=== PATIENT | female | born 2000 | race Caucasian/White ===

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

== ENCOUNTER 2020-05-01 19:18 | Emergency (ER) | payer MEDICAID, SELFPAY ==
[2020-05-01 19:19] VITALS: BP 136/71; PULSE 106; RESP 15; TEMP 36.6; O2SAT 97; BMI 22.0
--- NOTE | 2020-05-01 19:45 | ED.VISSUMM ---
- ER Visit Summary Date of Service: 05/01/20 Chief Complaint: Back pain History of Present Illness: The patient is a 19 F patient presents for back pain. This is her lower back. Bilateral, worse on the left. Worse after lifting at work. No weakness or numbness. No change in bowel or bladder. No abdominal or GI symptoms. No urinary symptoms. No history of back surgery, immune compromise, fever, or systemic symptoms. She also reports a strange rash to her lower back. Her family was concerned. She has been using heating pad. Physical Examination: Vital signs reviewed. Afebrile. She has left lumbar paraspinal muscle tenderness. No spinal tenderness. Good strength and sensation. Overlying skin shows erythema in a pattern localized to her lower back. Test Results: None indicated Emergency Department Course and Treatment: Patient skin changes are consistent with erythema ab igne. These will resolve with discontinuation of the heating pad. She has myofascial back pain after lifting. No indication for imaging or other diagnostic testing. She was treated with naproxen and Flexeril. Outpatient follow-up. Treatment Plan: As above Disposition: Discharge Impression: Myofascial back pain, erythema ab igne This note was generated with [employer] dictation software. It may contain incorrect words, spelling, and punctuation that were not noted in review of the chart prior to signing ED Disposition - Plan for ED Patient: Referrals: Care Physician,No Primary [Primary Care Provider] -
--- NOTE | 2020-05-01 19:47 | ED.DEP ---
ED Disposition - Plan for ED Patient: Instructions: ED Back Sprain/Strain Prescriptions: cycloBENZAPRine HCl [Flexeril] 10 mg PO TID PRN #20 tab PRN Reason: Muscle Spasm Prescription Printed Naproxen [Naprosyn] 500 mg PO BID PRN #20 tab Prescription Printed Referrals: Sherrie Martinez [NON-STAFF] -
[2020-05-01] MEDS: cycloBENZAPRine HCl 10 MG Tablet PO (19:51)
[2020-05-01] MEDS: Naproxen 500 MG Tablet PO (19:51)
== END 2020-05-01 19:55 | disposition home or self-care (01) ==
LOC: ED 19:52
PROVIDERS: Emergency Provider Emergency Medicine
DX: M54.9 Dorsalgia, unspecified (principal); L59.0 Erythema ab igne [dermatitis ab igne]
CPT/HCPCS: 99283

== ENCOUNTER 2021-10-17 07:15 | Emergency (ER) | payer MEDICAID, SELFPAY ==
[2021-10-17 07:16] VITALS: BP 137/85; PULSE 112; RESP 16; TEMP 36.6; O2SAT 98; BMI 23.8
--- NOTE | 2021-10-17 07:24 | CT_ITS ---
STUDY: CT ABDOMEN AND PELVIS WITHOUT CONTRAST REASON FOR EXAM: Female, 20 years old. Vomiting, constipation, abd pain RADIATION DOSAGE (If Supplied By Facility): CTDIvol = ( 6.50 ) mGy, DLP = ( 313.40 ) mGycm TECHNIQUE: Transaxial images were obtained from the dome of the diaphragm to the symphysis pubis without oral contrast, and without intravenous contrast. Sagittal and coronal images were reconstructed. Individualized dose optimization techniques were used for this CT. COMPARISON: None. FINDINGS: The visualized lung bases are unremarkable. The visualized portions of the heart are within normal limits. Normal liver. Normal gallbladder and extrahepatic biliary system. Normal spleen. Normal pancreas. Normal bilateral adrenal glands. Normal right kidney. Normal left kidney. Normal visualized stomach. Normal small intestine. Large amount of fecal material is seen in the colon. The appendix is visualized and appears normal. Normal abdominal aorta. Normal inferior vena cava. Normal retroperitoneum. Normal urinary bladder. Normal abdominal wall. Normal osseous structures. CT/Abdomen/Pelvis without Cont IMPRESSION: Large amount of fecal material is seen in the colon. Electronically Signed: Jared Devine MD at 9:08 EDT ,
--- NOTE | 2021-10-17 07:26 | EX.ED.DYSGE1 ---
HPI History of Present Illness Chief Complaint: Constipation Informant: patient Narrative Narrative: 20-year-old female presenting with constipation. She states she has not been able to have a bowel movement for the past 3 days. She also complains of vomiting. She complains of diffuse abdominal pain. She states she has not been able to keep anything down. Denies urinary complaints. Denies possibility of . No previous abdominal surgeries. Prior similar symptoms: No Recent Illness/Hospitalization: No PFSH PFSH Home Medications ondansetron 4 mg disintegrating tablet 4 mg PO Q8H PRN PRN Nausea #10 tabs 10/17/21 [Rx Last Taken Unknown] Allergy/AdvReac Type Severity Reaction Status Date / Time No Known Allergies Allergy Verified 10/17/21 07:18 Social History Smoking Status: Never smoker ROS ROS ED Constitutional Constitutional ED: Denies fever(s) Eyes Eyes: Denies change in vision ENT ENT ED: Denies rhinorrhea or sore throat Cardiovascular Cardiovascular: Denies chest pain or palpitations Respiratory/Chest Respiratory/Chest: Denies cough or dyspnea Gastrointestinal Gastrointestinal: Reports abdominal pain, constipation, nausea and vomiting; Denies diarrhea or melena Genitourinary Genitourinary ED: Denies dysuria Musculoskeletal Musculoskeletal: Denies myalgias Integumentary Denies rash Neurologic Neurologic: Denies headache(s) Psychiatric Psychiatric: Denies suicidal thoughts EXAM Physical Exam Const Vital Signs: 10/17/21 07:16 Temperature 98 F Temperature Source Temporal Pulse Rate 112 H Respiratory Rate 16 Blood Pressure 137/85 H Blood Pressure Mean 102 Pulse Ox 98 Oxygen Delivery Method Room Air Positive well nourished and well developed General Appearance ED: well developed HEENT Reports normocephalic and head/scalp atraumatic Eyes PERRL and EOMs intact bilaterally Neck supple General: Negative for tenderness Chest Wall inspection of chest normal Resp normal respiratory effort and clear to auscultation bilaterally Cardio regular rate and regular rhythm GI non-distended GI Narrative: Mild diffuse tenderness with no guarding or rebound. Rectal exam normal, no stool impaction Palpation: soft; Negative for guarding or rebound tenderness present no CVA tenderness Extremity normal to inspection Neuro oriented x3 Sensorium / Orientation: alert Psych mental status grossly normal Skin no rashes or lesions noted MDM MDM MDM Narrative Medical decision making narrative: Patient was given IV fluids, Zofran. CBC, chemistries are unremarkable. negative. CT abdomen pelvis shows large amount of fecal material in the colon. Rectal exam shows minimal stool, no impaction. She will be given mag citrate for home. She was given prescription for Zofran. Advised to follow-up with primary care physician. Advised return to ED for worsening complaints. Lab Data Attestation: I reviewed the patient's lab results. Labs: Laboratory Results - last 24 hr 10/17/21 10/17/21 10/17/21 07:35 07:35 07:35 WBC 6.9 RBC 4.51 Hgb 12.9 Hct 36.4 L MCV 80.7 L MCH 28.6 MCHC 35.4 RDW Std Deviation 36.8 RDW Coeff of Susie 12.7 Plt Count 281 MPV 10.0 Immature Gran % (Auto) 0.100 Neut % (Auto) 64.6 Lymph % (Auto) 26.8 [place] % (Auto) 6.6 Eos % (Auto) 1.6 Baso % (Auto) 0.3 Absolute Neuts (auto) 4.4 Absolute Lymphs (auto) 1.84 Nucleated RBC % 0 Sodium 137 Potassium 3.4 L Chloride 107 Carbon Dioxide 24.0 Anion Gap 6 BUN 11 Creatinine 0.60 Estim Creat Clear Calc 138.85 Est GFR (MDRD) Af Amer 160 Est GFR (MDRD) Non-Af 133 BUN/Creatinine Ratio 18.3 Glucose 97 Calcium 8.7 Total Bilirubin 0.60 AST 17 ALT 14 Alkaline Phosphatase 48 Total Protein 7.6 Albumin 3.7 Globulin 3.9 Albumin/Globulin Ratio 0.9 Serum , Qual NEGATIVE Urine Color Urine Clarity Urine pH Ur Specific [place] Urine Protein Urine Glucose (UA) Urine Ketones Urine Occult Blood Urine Nitrite Urine Bilirubin Urine Urobilinogen Ur Leukocyte Esterase Urine RBC Urine WBC Ur Squamous Epith Cells Urine Bacteria Urine Mucus 10/17/21 09:15 WBC RBC Hgb Hct MCV MCH MCHC RDW Std Deviation RDW Coeff of Susie Plt Count MPV Immature Gran % (Auto) Neut % (Auto) Lymph % (Auto) [place] % (Auto) Eos % (Auto) Baso % (Auto) Absolute Neuts (auto) Absolute Lymphs (auto) Nucleated RBC % Sodium Potassium Chloride Carbon Dioxide Anion Gap BUN Creatinine Estim Creat Clear Calc Est GFR (MDRD) Af Amer Est GFR (MDRD) Non-Af BUN/Creatinine Ratio Glucose Calcium Total Bilirubin AST ALT Alkaline Phosphatase Total Protein Albumin Globulin Albumin/Globulin Ratio Serum , Qual Urine Color Yellow Urine Clarity Sl. Cloudy Urine pH 6.0 Ur Specific [place] 1.015 Urine Protein Negative Urine Glucose (UA) Normal Urine Ketones 50 H Urine Occult Blood Negative Urine Nitrite Negative Urine Bilirubin Negative Urine Urobilinogen Normal Ur Leukocyte Esterase Negative Urine RBC 0 SEEN Urine WBC 0 SEEN Ur Squamous Epith Cells 5-10 SEEN Urine Bacteria 0 SEEN Urine Mucus 0 SEEN Radiography Diagnostic Testing: Clinical Impression(s) from Imaging Studies Abdomen/Pelvis CT 10/17/21 07:24 IMPRESSION: Large amount of fecal material is seen in the colon. Electronically Signed: Jared Devine MD at 9:08 EDT , Discharge Plan Triage Chief Complaint: Constipation ED Provider: Eileen Damon Dx/Rx/DC Orders Clinical Impression: Constipation Instructions: ED Constipation (Adult) Prescriptions: New ondansetron 4 mg tablet,disintegrating 4 mg PO Q8H PRN PRN (Reason: Nausea) Qty: 10 0RF Primary Care Provider: Care Physician,No Primary Referrals: Jair Howard MD [NON-STAFF] - Care Physician,No Primary [Primary Care Provider] - Disposition Disposition: Home, Self Care
[2021-10-17] MEDS: Ondansetron 4 MG/2 ML Vial IV (07:45)
[2021-10-17] MEDS: 0.9% Normal Saline 1,000 ML 1000 ML IV (07:45)
[2021-10-17 07:52] LABS: Absolute Lymphocyte Count 1.84 X10^3/uL (0.83-4.51); Absolute Neutrophil Count 4.4 X10^3/uL (2.0-7.7); Basophil# 0.02 X10^3/uL; Basophil% 0.3 % (0-1); Eosinophil# 0.11 X10^3/uL; Eosinophils% 1.6 % (0-5); Hematocrit 36.4 % (37-47); Hemoglobin 12.9 g/dL (12.0-15.0); Lymphocyte # 1.84 X10^3/ul (0.83-4.51); Lymphocyte % 26.8 % (19-41); Mean Corp Hgb Conc 35.4 g/dL (32-36); Mean Corpuscular Hgb 28.6 pg (27.0-32.0); Mean Corpuscular Volume 80.7 fL (81-99); Monocyte# 0.45 X10^3/uL; Monocyte% 6.6 % (0-10); NRBC Flagged by Analyzer 0 % (0-5); Neutrophil # 4.44 X10^3/uL (2.7-7.7); Neutrophil % 64.6 % (47-70); Platelet Count 281 K/mm3 (150-450); RBC Distribution Width CV 12.7 % (11.6-14.6); RBC Distribution Width SD 36.8 fl (35.1-43.9); Red Blood Count 4.51 M/mm3 (4.2-5.4); White Blood Count 6.9 K/mm3 (4.4-11.0)
[2021-10-17 08:00] LABS: ALB/GLOB Ratio 0.9 RATIO (0.9-2.4); AST(SGOT) 17 U/L (15-37); Alanine Aminotransfer ALT/SGPT 14 U/L (13-56); Albumin, Serum 3.7 g/dL (3.2-5.0); Alkaline Phosphatase 48 U/L (45-117); Anion Gap 6 (5-15); BUN 11 mg/dL (7-18); BUN/Creat Ratio 18.3 RATIO (10-20); Calcium,Total 8.7 mg/dL (8.5-10.1); Chloride 107 mmol/L (98-107); EST Glomerular Filtration Rate 133 mL/min (>60); Est Glom Filt Rate - Afr Amer 160 mL/min (>60); Estimated Creatinine Clearance 138.85 ml/min; Globulin 3.9 g/dL (2.2-4.2); Glucose 97 mg/dL (74-106); Potassium 3.4 mmol/L (3.5-5.1); Protein, Total 7.6 g/dL (6.4-8.2); Sodium Level 137 mmol/L (136-145)
[2021-10-17 08:31] LABS: Internal QC Validated? YES +Cl - CLEAR BKGD; Pregnancy, Serum, hCG Quali. NEGATIVE Negative
[2021-10-17 09:28] LABS: Bacteria 0 SEEN /hpf (None Seen); Mucous, Urine 0 SEEN /hpf (<or=2+); Red Blood Cells-Urine 0 SEEN /hpf (0-5); White Blood Cells 0 SEEN /hpf (0-5)
[2021-10-17 09:30] LABS: Color, Urine Yellow (Yellow); Glucose, Dipstick Normal (Normal); Ketone-Dipstick 50 mg/dl (Negative); Leukocyte Esterase-Dipstick Negative /ul (Negative); Nitrite-Dipstick Negative (Negative); Occult Blood-Urine Negative /ul (Negative); Protein-Dipstick Negative (Negative); Specific Gravity, Urine 1.015 (1.002-1.030); Urine Bilirubin Dipstick Negative (Negative); Urine Clarity Sl. Cloudy (Clear); Urine Urobilinogen Normal (Normal)
[2021-10-17 09:36] LABS: Squamous Epithelial Cells - UA 5-10 SEEN /hpf (5-10)
[2021-10-17] MEDS: Magnesium Citrate 300 ML PO (09:45)
== END 2021-10-17 09:47 | disposition home or self-care (01) ==
PROVIDERS: Emergency Provider Emergency Medicine; Visit Provider Emergency Medicine
DX: K59.00 Constipation, unspecified (principal); R11.2 Nausea with vomiting, unspecified
CPT/HCPCS: 74176; 80053; 81001; 84703; 85025; 96361; 96374; 99284; J7030; A4216; J2405

== ENCOUNTER 2025-02-16 02:08 | Emergency (ER) | payer SELFPAY ==
[2025-02-16 02:09] VITALS: BP 141/82; PULSE 92; RESP 18; TEMP 36.9; O2SAT 97; BMI 30.4
--- NOTE | 2025-02-16 02:29 | EDS_ITS ---
HPI History of Present Illness Chief Complaint: Other, Pain/Inj Detail of Chief Complaint: neck pain Informant: patient Narrative Narrative: Patient is a 24-year-old female with a history of sickle cell trait presenting with acute onset of severe right neck pain. - Reports waking up at 0200 yesterday with inability to move her neck, describing it as locked up. - Prior to this, she experienced neck tingles on the right side for a few days, which she attributed to posture. - Describes current pain as radiating from the neck to the head, likening it to being hit with a baseball bat; has never experienced anything similar before. - Pain is exacerbated by movement, particularly when turning to the right. - Associated symptoms include brief explosive headaches triggered by sudden movements. - Denies fever, photophobia, or any recent heavy lifting or straining. - No issues with swallowing or breathing; denies abdominal pain, sore throat, cough, or other illness symptoms. - Reports chronic right anterior ear pain for several years, described as feeling like a pen is being stuffed into her ear when eating or chewing; suspects TMJ syndrome due to a history of teeth grinding. - Denies any other medical problems. [facility] Medical History (Updated 02/16/25 @ 04:[address] Casey Gallegos MD) Sickle cell trait Medical History no medical history Home Medications ?Medication ?Instructions ?Recorded ?Last Taken ?Type amoxicillin 875 mg-potassium 875 mg PO Q12H #20 TABLET S 02/16/25 Unknown Rx clavulanate 125 mg tablet hydrocodone-acetaminophen 5-325mg 1 tab PO Q6H PRN PRN Pain 3 days 02/16/25 Unknown Rx 5mg-325mg #10 TABLETS Allergy/AdvReac Type Severity Reaction Status Date / Time No Known Allergies Allergy Verified 02/16/25 02:13 Social History Smoking Status: Never smoker ROS ROS ED Constitutional Constitutional ED: Denies chills or fever(s) Eyes Eyes: Denies change in vision or diplopia ENT ENT ED: Reports ear pain right and neck pain; Denies disequillibrium, dizziness, hearing loss, loss taste/smell, nasal congestion, rhinorrhea, sore throat or tinnitus Cardiovascular Cardiovascular: Denies chest pain or palpitations Respiratory/Chest Respiratory/Chest: Denies cough or dyspnea Gastrointestinal Gastrointestinal: Denies abdominal pain, diarrhea, nausea or vomiting Genitourinary Genitourinary ED: Denies dysuria or hematuria Musculoskeletal Musculoskeletal: Reports neck pain; Denies back pain Integumentary Denies abscess or rash Neurologic Neurologic: Denies headache(s), paresthesias or weakness Psychiatric Psychiatric: Denies anxiety or suicidal thoughts EXAM Physical Exam Const Vital Signs: 02/16/25 02:09 02/16/25 02:13 Temperature 98.5 F Temperature Source Oral Pulse Rate 92 Respiratory Rate 18 Respiratory Pattern Normal Blood Pressure 141/82 H Blood Pressure Mean 101 Pulse Ox 97 Positive well nourished and well developed General Appearance ED: well developed and NAD HEENT Reports moist mucous membranes normocephalic and atraumatic Eyes PERRL and EOMs intact bilaterally Neck Neck Narrative: Very tender throughout the right lateral neck in the area of the lupe rnocleidomastoid, mastoid process, periauricular area including anteriorly where parotid lies, and the musculature of the neck just posterior to the mastoid process. All of these areas are normal in appearance and palpation. I do not feel any perirectal or cervical lymphadenopathy however the exam is limited due to the patient withdrawing and pain with light palpation everywhere. The mastoid is not swollen or erythematous. The parotid is not enlarged when compared to the other side nor is it firm or boggy. There is no discharge from Stensen's duct bilaterally. She has no trismus. No malocclusion of the teeth. She does not have TMJ clicking when she moves her jaw. There is no mandibular tenderness. There is no swelling or abnormal skin abnormalities in the right side of the neck but she is resistant to turning to the side due to pain. There is no posterior spinal tenderness or other posterior neck tenderness. Resp normal respiratory effort and clear to auscultation bilaterally Cardio regular rate, regular rhythm and no murmurs Back/Spine General Back: other FROM Extremity normal to inspection General Extremety ED: Negative for edema, pulses abnormal or tenderness General Extremity: Negative for edema or pulses abnormal Neuro oriented x3, CN's II-XII intact bilaterally and no sensory deficits noted Neuro Narrative: nml gait Sensorium / Orientation: awake and alert Motor Exam: strength 5/5 throughout Skin no rashes or lesions noted and no wounds MDM MDM MDM Narrative Medical decision making narrative: Assessment: The patient is a 24-year-old female presenting for acute right-sided neck pain radiating to the periauricular region since yesterday. Pain worsens with neck rotation and is associated with focal tenderness over the right parotid/mastoid area; no fever, no systemic infectious symptoms, normal neurologic examination, and no signs of meningitis. Differential included muscular strain, TMJ syndrome, cervical lymphadenitis, mastoiditis, parotid infection/abscess, and neoplasm. CT mastoid/petrous bone and CT neck with IV contrast demonstrate deep cervical lymphadenopathy and a 1?2 cm enhancing right parotid gland mass with a hypodense center. Labs show no leukocytosis. Radiology favors a soft-tissue mass; however, given reactive lymphadenopathy and severe focal pain, a localized parotid infection or early abscess remains possible. Plan: - Symptomatic pain treatment administered in ED - Prescribed Augmentin for possible parotid infection/early abscess - Prescribed oral analgesics for pain control - Discharge home with instructions to arrange otolaryngology follow-up after the weekend Diagnostics: - CT mastoid and petrous bone with IV contrast: deep cervical lymphadenopathy; 1?2 cm enhancing right parotid mass with hypodense center; no mastoid bone infection. Independently interpreted by Casey warner. - CT neck with IV contrast: findings concordant with above; no additional pathology. Independently interpreted by Casey warner. - Labs: CBC without leukocytosis Lab Data Attestation: I reviewed the patient's lab results. Labs: Laboratory Results - last 24 hr 02/16/25 02:37 WBC 9.2 RBC 4.51 Hgb 12.4 Hct 35.9 L MCV 79.6 L MCH 27.5 MCHC 34.5 RDW Std Deviation 37.7 RDW Coeff of Susie 13.2 Plt Count 346 MPV 9.6 Immature Gran % (Auto) 0.200 Neut % (Auto) 69.7 Lymph % (Auto) 22.7 [place] % (Auto) 6.0 Eos % (Auto) 1.1 Baso % (Auto) 0.3 Absolute Neuts (auto) 6.4 Absolute Lymphs (auto) 2.08 Nucleated RBC % 0 Sodium 139 Potassium 3.9 Chloride 105 Carbon Dioxide 24.4 Anion Gap 10 BUN 13 Creatinine 0.66 L Estim Creat Clear Calc 143.79 Est GFR (MDRD) Non-Af 125 BUN/Creatinine Ratio 19.7 Glucose 114 H Calcium 9.0 Radiography Diagnostic Testing: Clinical Impression(s) from Imaging Studies CT Orbit Sella Inner 02/16/25 02:55 IMPRESSION: Unremarkable study of the mastoid and petrous bones. Reading Location: [place] [id number] 02/16/25 02:55 IMPRESSION: Right parotid gland superficial lobe enhancing mass. Advise histopathological correlation. Right thyroid lobe 4 mm hypodense nodule. Advise sonography correlation. Relatively prominent palatine tonsils and oropharyngeal tissue, possibly inflammatory with no obvious marginally enhancing abscesses formation. Advise clinical correlation. Reading Location: [place] [address] Discharge Plan Triage Chief Complaint: Other, Pain/Inj ED Provider: Casey Gallegos Dx/Rx/DC Orders Clinical Impression: Mass of right parotid gland, Neck pain on right side, Lymphadenopathy of right cervical region Instructions: ED Neck Pain, ED Salivary Gland Swelling Cause Prescriptions: New hydrocodone-acetaminophen 5-325 mg tablet 1 tab PO Q6H PRN PRN (Reason: Pain) 3 Days Qty: 10 0RF amoxicillin-pot clavulanate 875-125 mg tablet 875 mg PO Q12H Qty: 20 0RF Primary Care Provider: Care Physician,No Primary Referrals: Collin Haney MD [Med Staff - Active Staff, Ear Nose Throat (ENT)] - As soon as possible Activity Restrictions/Additional Instructions: - Start the prescribed Augmentin antibiotic to cover a possible infection or early abscess in your salivary gland. - Take the prescribed pain reliever as needed to manage your neck and ear discomfort. - CT scan findings: swollen lymph nodes deep in your neck and a 1?2 cm mass in your parotid (salivary) gland by the ear with a small fluid-filled center; radiology recommends correlation with a biopsy, which may be indicated if antibiotics do not resolve it. - After the weekend, call the otolaryngology (ENT) office to schedule your follow-up appointment and discuss the recommended biopsy. Print Language: Welsh Disposition Disposition: Home, Self Care
[2025-02-16 02:41] LABS: Hematocrit 35.9 % (37-47); Hemoglobin 12.4 g/dL (12.0-15.0); Immature Granulocytes Count 0.020 X10^3/uL (0.0-0.0); Mean Corp Hgb Conc 34.5 g/dL (32-36); Mean Corpuscular Volume 79.6 fL (81-99); Mean Platelet Vol. 9.6 fl (6.2-12.0); NRBC Flagged by Analyzer 0 % (0-5); Platelet Count 346 K/mm3 (150-450); RBC Distribution Width CV 13.2 % (11.6-14.6); RBC Distribution Width SD 37.7 fl (35.1-43.9); Red Blood Count 4.51 M/mm3 (4.2-5.4); White Blood Count 9.2 K/mm3 (4.4-11.0)
[2025-02-16] MEDS: Orphenadrine 60 MG/2 ML Ampul IV (02:41)
--- NOTE | 2025-02-16 02:55 | CT_ITS ---
PROCEDURE: ORB SELLA POST FOSSA EAR W/O 02/16/2025 REASON FOR EXAM: RIGHT NECK/EAR/MASTOID PAIN TECHNIQUE: Procedure Code: CTORB Modality: CT Procedure: ORB SELLA POST FOSSA EAR W/O CONTRAST: none One or more dose reduction techniques were used (e.g., Automated exposure control, adjustment of the mA and/or kV according to patient size, use of iterative reconstruction technique). RADIATION DOSE SUMMARY: CTDI Vol 22.63 mGy DLP :515.6mGycm COMPARISON: none FINDINGS: Clear pneumatized mastoid air cells and mastoid antrum on either side. The middle ear clefts show normal pneumatization with no internal densities. Normal appearance of the ossicular chain on either side. No bony erosive changes. Normal appearance of the scutum. Normal appearance of the cochlea, vestibules and semicircular canals on either side. No obvious internal auditory canals masses on non contrast bases. No obvious nasopharyngeal masses. CT/Orb Sella Post Fossa Ear w/o IMPRESSION: Unremarkable study of the mastoid and petrous bones. Reading [facility] [id number]
--- NOTE | 2025-02-16 02:55 | CT_ITS ---
PROCEDURE: SOFT TISSUE NECK WITH CONTRAST 02/16/2025 REASON FOR EXAM: R NECK PAIN TECHNIQUE: Procedure Code: CTNEW Modality: CT Procedure: SOFT TISSUE NECK WITH CONTRAST CONTRAST: isovue 370 VOLUME: 75 mL One or more dose reduction techniques were used (e.g., Automated exposure control, adjustment of the mA and/or kV according to patient size, use of iterative reconstruction technique). RADIATION DOSE SUMMARY: CTDI Vol 16.68 mGy DLP :323.70 mGycm COMPARISON: 13-Oct-2018 CR FINDINGS: Right parotid gland superficial lobe 11 x 13 mm enhancing mass showing hypodense center. Right thyroid lobe 4 mm hypodense nodule. Relatively prominent palatine tonsils and oropharyngeal tissue with no obvious marginally enhancing abscesses formation. Normal CT appearance of the larynx, namely the supra-glottic, glottic and infra, glottic spaces. The base of the tongue, the epiglottis, the vocal cords, the upper trachea, the upper esophagus are unremarkable. Normal CT appearance of the supra-and infra hyoid deep neck spaces. Normal CT appearance of the sublingual, submandibular and left parotid salivary glands. Subcentemetric group I, II and III deep cervical lymph nodes, likely reactive. Normal appearance of the carotid sheath vessels. The visualized structures of the posterior fossa show no definite abnormality. The examined paranasal sinuses are clear. Mild degenerative changes opposite C5-C6 & C6-C7 level. CT/Soft Tissue Neck WITH Contrast IMPRESSION: Right parotid gland superficial lobe enhancing mass. Advise histopathological c orrelation. Right thyroid lobe 4 mm hypodense nodule. Advise sonography correlation. Relatively prominent palatine tonsils and oropharyngeal tissue, possibly inflam matory with no obvious marginally enhancing abscesses formation. Advise clinical correlation. Reading Location[facility]
[2025-02-16 02:59] LABS: Anion Gap 10 (5-15); BUN 13 mg/dL (4-19); BUN/Creat Ratio 19.7 RATIO (10-20); Calcium,Total 9.0 mg/dL (7.6-11.0); Carbon Dioxide 24.4 mmol/L (21.0-32.0); Chloride 105 mmol/L (98-108); Estimated Creatinine Clearance 143.79 ml/min (50-250); Glucose 114 mg/dL (70-99); Potassium 3.9 mmol/L (3.3-5.1)
--- OUTSIDE RECORDS SUMMARY | 2025-02-16 03:54 | XMS RPT_ITS | CCD ---
Author Organization [facility] Care Team Providers Care Epic Willow Specialist Name Role Phone Unavailable Primary Care Provider Unavailabl e Medications Current Medications Medication Drug Class(es) Dates Sig (Normalized) Sig (Original) ondansetron 4 mg disintegrating oral tablet (1 source) Serotonin-3 Receptor Antagonist Start: 10-17-2021 take 4 mg by mouth every eight hours as needed Ondansetron Active 4 MG PO EVERY 8 HOURS NEEDED October 17, 2021 12:00am Completed/Discontinued Medications Medication Drug Class(es) Dates Sig (Normalized) Sig (Original) diphenhydrAMINE hydrochloride 25 mg oral capsule (1 source) Histamine-1 Receptor Antagonist Start: 06-05-2018 End: 06-10-2018 take 25 mg by mouth three times daily Diphenhydramine Hcl Discontinued 25 MG PO THREE TIMES A DAY 15 June 05, 2018 1:00am June 10, 2018 12:10am Problems Problem Classification Problem Date Documented Da te Episodic/Chronic Fever of unknown origin (1 source) Low grade pyrexia; Translations: [Fever, unspecified] 11-22-2023 Episodic Other eye disorders (1 source) Bilateral epiphora of eyes; Translations: [Unspecified epiphora, bilateral] 11-22-2023 Episodic Other gastrointestinal disorders (1 source) Foreign body sensation; Translations: [Other specified symptoms and signs involving the digestive system and abdomen] Episodic Other gastrointestinal disorders (1 source) Constipation; Translations: [Constipation, unspecified] Episodic Other upper respiratory disease (1 source) Nasal congestion; Translations: [Nasal congestion] 11-22-2023 Episodic Unclassified (1 source) No history of clinical finding in subject; Translations: [No significant past medical history] Results Test Name Value Interpretation Reference Range Facil ity CNOVon 11-22-2023 CNOV Office Visit ([facility]) NAYANA MORA ([id number]) 89 F Date Time Provider Department 11/22/23 7:00 PM [facility] During your visit today, we recorded the following information about you: Temperature Pulse Respiration Blood pressure 100 degrees 86/minute 18/minute 124/78 Weight Last Period 76 kg 11/22/23 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 No official court interpreter was used. HPI Nayana Mora is a 23 year old female who presents today for CC of nasal congestion, itchy watery eyes and post nasal drainage for 3 days. She also has a low grade temperature. 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 She denies any cough nausea, vomiting or diarrhea. She did not test for covid no known exposure. BP 124/78 Pulse 86 Temp 37.8 ?C (100 ?F) Resp 18 Wt 76 kg (167 lb 8.8 oz) LMP 11/22/2023 (Exact Date) SpO2 100% Social History Tobacco Use Smoking status: Never Smokeless tobacco: Never No past medical history on file. I have confirmed and edited as necessary, the [facility] Review of Systems Constitutional: Negative for chills and fever. HENT: Positive for congestion and sinus pain. Negative for ear pain and sore throat. Eyes: Itchy eyes Respiratory: Negative for cough, sputum production, shortness of breath and wheezing. Cardiovascular: Negative for chest pain. Musculoskeletal: Negative for myalgias. Neurological: Negative for headaches. Objective Physical Exam Vitals and nursing note reviewed. HENT: Head: Normocephalic and atraumatic. Right Ear: Tympanic membrane, ear canal and external ear normal. Left Ear: Tympanic membrane, ear canal and external ear normal. Nose: Mucosal edema, congestion and rhinorrhea (clear) present. Right Sinus: No maxillary sinus tenderness or frontal sinus tenderness. Left Sinus: No maxillary sinus tenderness or frontal sinus tenderness. Mouth/Throat: Pharynx: Uvula midline. No oropharyngeal exudate or posterior oropharyngeal erythema. Cardiovascular: Rate and Rhythm: Normal rate and regular rhythm. Heart sounds: Normal heart sounds. Pulmonary: Effort: Pulmonary effort is normal. Breath sounds: Normal breath sounds. Lymphadenopathy: Head: Right side of head: No submental, submandibular or tonsillar adenopathy. Left side of head: No submental, submandibular or tonsillar adenopathy. Cervical: No cervical adenopathy. Skin: General: Skin is warm and dry. Neurological: Mental Status: She is alert. Psychiatric: Mood and Affect: Affect normal. ASSESSMENT/PLAN: 1. Nasal congestion - ICD9: 478.19, ICD10: R09.81 (primary diagnosis) Possible allergies uri Zyrtec, flonase 2. Watery eyes - ICD9: 375.20, ICD10: H04.203 Possible viral, cold, allergies Zaditor, pataday 3. Low grade fever - ICD9: 780.60, ICD10: R50.9 Tylenol/ibuprofen Possible viral illness Will test for covid at home, declined testing here Symptomatic treatment Diagnosis and treatment plan were discussed and questions were answered to the patient's satisfaction. Pt acknowledged understanding of concepts and follow up plan. Specific signs and symptoms that would indicate the need for higher level of care were discussed in detail warranting prompt ER evaluation. DEMARIO Joe Tonya, APRN.CNP 11/22/2023 7:34 PM Signed Rest, increase water intake Motrin or Tylenol as needed for fever or pain. Salt water gargles, chloraseptic spray or lozenges as needed for sore throat. Warm beverages, honey. Nasal saline spray as needed Cool mist humidifier at night A cold normally lasts 7-10 days. If your symptoms are lasting longer, develop fever, or worsening by that time instead of improving then return to clinic or follow up with PCP for re-evaluation. For allergies Flonase or Nasonex 2 sprays in each nostril once a day Zyrtec 10 mg By mouth daily at bedtime Pataday or Zaditor as needed for eye itching * Seek medical care immediately, call 911, go to ER if you have chest pain, difficulty breathing, shortness of breath, inability to swallow. Allergies As of Date: 11/22/2023 (No Known Allergies) Date Reviewed: 11/22/2023 Reviewed by: Dee Tristan LPN - Fully Assessed Reason for Visit: Sinus Problem [99] Cmt: Pressure and pain in face, headache, itchy watery eyes, scratchy throat, low grade fever x 2 days Primary Visit Diagnosis:Nasal congestion [R09.81] Other Visit Diagnoses:Watery eyes [H04.203] Low grade fever [R50.9] Problem List As Of Date: 11/22/2023 (None) Other instructions from your clinician: Rest, increase water intake Motrin or Tylenol as needed for fever or pain. Salt water gargles, chloraseptic spray or lozenges as needed for sore throat. Warm beverages, honey. Nasal saline spray as needed Cool mist hum (more content not included)... Normal [facility] Abdomen/Pelvis without Conto n 10-17-2021 Abdomen/Pelvis without Cont [facility] Imaging Services [address] [place] [address] Abdomen/Pelvis without Cont MR#: [id number] Acct: [id number] Name: NAYANA MORA Rep #: [id number] : 2000 F 20 From: Jared hollis MD PCP: Care Physician,No Primary Status: REG ER Study: Abdomen/Pelvis without Cont Date of Exam: 09/30 11/21 Exam# [id number] Ordering Dr: Eileen Damon MD STUDY: CT ABDOMEN AND PELVIS WITHOUT CONTRAST REASON FOR EXAM: Female, 20 years old. Vomiting, constipation, abd pain RADIATION DOSAGE (If Supplied By Facility): CTDIvol = ( 6.50 ) mGy, DLP = ( 313.40 ) mGycm TECHNIQUE: Transaxial images were obtained from the dome of the diaphragm to the symphysis pubis without oral contrast, and without intravenous contrast. Sagittal and coronal images were reconstructed. Individualized dose optimization techniques were used for this CT. COMPARISON: None. FINDINGS: The visualized lung bases are unremarkable. The visualized portions of the heart are within normal limits. Normal liver. Normal gallbladder and extrahepatic biliary system. Normal spleen. Normal pancreas. Normal bilateral adrenal glands. Normal right kidney. Normal left kidney. Normal visualized stomach. Normal small intestine. Large amount of fecal material is seen in the colon. The appendix is visualized and appears normal. Normal abdominal aorta. Normal inferior vena cava. Normal retroperitoneum. Normal urinary bladder. Normal abdominal wall. Normal osseous structures. CT/Abdomen/Pelvis without Cont IMPRESSION: Large amount of fecal material is seen in the colon. Electronically Signed: Jared Devine MD at 9:08 EDT Reading Location ID and State: [facility] / [place] , Service support , CC: Dr. Eileen Damon MD; No Primary Care Physician Industrial Education Teacher: Signed Normal [facility] Absolute lymphocyte counton 10-17-2021 Lymphocytes Auto (Unsp spec) [#/Vol] 1.84 10*3/uL 0.83-4.51 [facility] Work Phone: Basophil percentageon 2021 Basophil percentage 0 SEEN /hpf 0-5 [facility] Work Phone: Basophils/100 WBC (Bld) 0.3 % 0-1 [facility] Work Phone: Bilirubin [Mass/Vol] 0.60 mg/dL Normal 0.20-1.00 [facility] Work Phone: Comment on above: For patients on eltr ombopag therapy, use of Dimension Mitchell TBIL is not recommended. Result Comment: For patients on eltrombopag therapy, use of Dimension Mitchell TBIL is not recommended. Performed By: #### L 100.0100, L500.4050 #### [facility] [address] [place], [address] Chloride [Moles/Vol] 107 mmol/L Normal 98-107 [facility] Work Phone: Comment on above: Performed By: #### L 100.0100, L500.4050 #### [facility] [address] [place], [address] Eosinophils/100 WBC (Bld) 1.6 % 0-5 [facility] Work Phone: Glucose [Mass/Vol] 97 mg/dL Normal 74-106 [facility] Work Phone: Comment on above: Performed By: #### L 100.0100, L500.4050 #### [facility] [address] [place], [address] Neutrophils (Bld) [#/Vol] 4.4 10*3/uL 2.0-7.7 [facility] Work Phone: Neutrophils/100 WBC (Bld) 64.6 % 47-70 [facility] Work Phone: Potassium [Moles/Vol] 3.4 mmol/L Low 3.5-5.1 [facility] Work Phone: Comment on above: Performed By: #### L 100.0100, L500.4050 #### [facility] [address] [place], [address] Protein [Mass/Vol] 7.6 g/dL 6.4-8.2 [facility] Work Phone: Sodium [Moles/Vol] 137 mmol/L Normal 136-145 [facility] Work Phone: Comment on above: Performed By: #### L 100.0100, L500.4050 #### [facility] [address] [place], [address] WBC (Bld) [#/Vol] 6.9 10*3/uL 4.4-11.0 [facility] Work Phone: Beta hCG serum qualon 2021 Beta HCG ( test) Ql Negative [facility] Work Phone: Bilirubin Test strip Ql (U)o n 10-17-2021 Bilirubin Ql (U) Negative Negative [facility] Work Phone: Blood erythrocytes count (nu mber/volume)on 10-17-2021 RBC (Bld) [#/Vol] 4.51 10*6/uL 4.2-5.4 [facility] Work Phone: Blood hemoglobin measurement (mass/volume)on 10-17-2021 Hemoglobin (Bld) [Mass/Vol] 12.9 g/dL 12.0-15.0 [facility] Work Phone: Blood lymphocytes/100 leukoc yteson 10-17-2021 Lymphocytes/100 WBC (Bld) 26.8 % 19-41 [facility] Work Phone: Blood monocytes/100 leukocyt eson 10-17-2021 Monocytes/100 WBC (Bld) 6.6 % 0-10 [facility] Work Phone: Blood platelet mean volumeon 10-17-2021 Platelet mean volume (Bld) [Entitic vol] 10.0 fL 6.2-12.0 [facility] Work Phone: CBC W/Diff, Automatedon 09-30 Absolute Lymph 1.84 X10 3/uL Normal 0.83-4.51 [facility] Comment on above: Performed By: #### L 100.0100, L500.4050 #### [facility] [address] [place], [address] Absolute Neut 4.4 X10 3/uL Normal 2.0-7.7 [facility] Comment on above: Performed By: #### L 100.0100, L500.4050 #### [facility] [address] [place], [address] Basophils/100 WBC (Bld) 0.3 % Normal 0-1 [facility] Comment on above: Performed By: #### L 100.0100, L500.4050 #### [facility] [address] [place], [address] Eosinophils/100 WBC (Bld) 1.6 % Normal 0-5 [facility] Comment on above: Performed By: #### L 100.0100, L500.4050 #### [facility] [address] [place], [address] Erythrocyte distribution width (RBC) [Ratio] 12.7 % Normal 11.6-14.6 [facility] Comment on above: Performed By: #### L 100.0100, L500.4050 #### [facility] [address] [place], [address] Hematocrit (Bld) [Volume fraction] 36.4 % Low 37-47 [facility] Comment on above: Performed By: #### L 100.0100, L500.4050 #### [facility] [address] [place], [address] Hemoglobin (Bld) [Mass/Vol] 12.9 g/dL Normal 12.0-15.0 [facility] Comment on above: Performed By: #### L 100.0100, L500.4050 #### [facility] [address] [place], [address] IG% 0.100 Normal 0.0-0.9 [facility] Comment on above: Result Comment: IG% - Immature Granulocytes (promyelocytes, myelocytes and metamyelocytes) > 1% indicates that a LEFT SHIFT is Present. Performed By: #### L 100.0100, L500.4050 #### [facility] [address] [place], [address] Lymphocytes/100 WBC (Bld) 26.8 % Normal 19-41 [facility] Comment on above: Performed By: #### L 100.0100, L500.4050 #### [facility] [address] [place], [address] MCH (RBC) [Entitic mass] 28.6 pg Normal 27.0-32.0 [facility] Comment on above: Performed By: #### L 100.0100, L500.4050 #### [facility] [address] [place], [address] MCHC (RBC) [Mass/Vol] 35.4 g/dL Normal 32-36 [facility] Comment on above: Performed By: #### L 100.0100, L500.4050 #### [facility] [address] [place], [address] MCV (RBC) [Entitic vol] 80.7 fL Low 81-99 [facility] Comment on above: Performed By: #### L 100.0100, L500.4050 #### [facility] [address] [place], [address] Monocytes/100 WBC (Bld) 6.6 % Normal 0-10 [facility] Comment on above: Performed By: #### L 100.0100, L500.4050 #### [facility] [address] [place], [address] Neutrophils/100 WBC (Bld) 64.6 % Normal 47-70 [facility] Comment on above: Performed By: #### L 100.0100, L500.4050 #### [facility] [address] [place], [address] Nucleated RBC (Bld) [#/Vol] 0 10*3/uL Normal 0-5 [facility] Comment on above: Performed By: #### L 100.0100, L500.4050 #### [facility] [address] [place], [address] Platelet mean volume (Bld) [Entitic vol] 10.0 fL Normal 6.2-12.0 [facility] Comment on above: Performed By: #### L 100.0100, L500.4050 #### [facility] [address] [place], [address] Platelets (Bld) [#/Vol] 281 10*3/uL Normal 150-450 [facility] Comment on above: Performed By: #### L 100.0100, L500.4050 #### [facility] [address] [place], [address] RBC (Bld) [#/Vol] 4.51 10*6/uL Normal 4.2-5.4 [facility] Comment on above: Performed By: #### L 100.0100, L500.4050 #### [facility] [address] [place], [address] RDW SD 36.8 fl Normal 35.1-43.9 [facility] Comment on above: Performed By: #### L 100.0100, L500.4050 #### [facility] [address] [place], [address] WBC (Bld) [#/Vol] 6.9 10*3/uL Normal 4.4-11.0 [facility] Comment on above: Performed By: #### L 100.0100, L500.4050 #### [facility] [address] [place], [address] Comprehensive Metabolic Prof ilon 10-17-2021 ALK P 48 U/L Normal 45-117 [facility] Comment on above: Performed By: #### L 100.0100, L500.4050 #### [facility] [address] [place], [address] AST [Catalytic activity/Vol] 17 U/L Normal 15-37 [facility] Comment on above: Performed By: #### L 100.0100, L500.4050 #### [facility] [address] [place], [address] BUN/CRE 18.3 RATIO Normal 10-20 [facility] Comment on above: Performed By: #### L 100.0100, L500.4050 #### [facility] [address] [place], [address] CA,Total 8.7 mg/dL Normal 8.5-10.1 [facility] Comment on above: Performed By: #### L 100.0100, L500.4050 #### [facility] [address] [place], [address] ECRCL 138.85 ml/min Normal [facility] Comment on above: Performed By: #### L 100.0100, L500.4050 #### [facility] [address] [place], [address] EST GFR - AA 160 mL/min Normal >60 [facility] Comment on above: Result Comment: Afri can Italian GFR Calc Performed By: #### L 100.0100, L500.4050 #### [facility] [address] [place], [address] GAP 6 Normal 5-15 [facility] Comment on above: Performed By: #### L 100.0100, L500.4050 #### [facility] [address] [place], [address] GFR/1.73 sq M.predicted among non-blacks MDRD (S/P/Bld) [Vol rate/Area] 133 mL/min/{1.73_m2} Normal >60 [facility] Comment on above: Result Comment: Non- GFR Calc Performed By: #### L 100.0100, L500.4050 #### [facility] [address] [place], [address] T PROT 7.6 g/dL Normal 6.4-8.2 [facility] Comment on above: Performed By: #### L 100.0100, L500.4050 #### [facility] [address] [place], [address] ALT [Catalytic activity/Vol] 14 U/L Normal 13-56 [facility] Work Phone: Comment on above: Performed By: #### L 100.0100, L500.4050 #### [facility] [address] [place], [address] CO2 [Moles/Vol] 24.0 mmol/L Normal 21.0-32.0 [facility] Work Phone: Comment on above: Performed By: #### L 100.0100, L500.4050 #### [facility] [address] [place], [address] Globulin (S) [Mass/Vol] 3.9 g/dL Normal 2.2-4.2 [facility] Work Phone: Comment on above: Performed By: #### L 100.0100, L500.4050 #### [facility] [address] [place], [address] Determination of erythrocyte mean corpuscular volume (MCV)on 10-17-2021 MCV (RBC) [Entitic vol] 80.7 fL 81-99 [facility] Work Phone: Emergency Department Summary on 10-17-2021 Emergency Department Summary [facility] Medical Records Department [address] [place] [address] Emergency Department Summary 10/17/21 MR#: [id number] Acct: [id number] Name: NAYANA MORA Rep #: [id number] : 2000 20 From: Eileen Damon MD PCP: Care Physician,No Primary Status:REG ER Location: ED HPI History of Present Illness Chief Complaint: Constipation Informant: patient Narrative Narrative: 20-year-old female presenting with constipation. She states she has not been able to have a bowel movement for the past 3 days. She also complains of vomiting. She complains of diffuse abdominal pain. She states she has not been able to keep anything down. Denies urinary complaints. Denies possibility of . No previous abdominal surgeries. Prior similar symptoms: No Recent Illness/Hospitalizat ion: No PFSH PFSH Home Medications ondansetron 4 mg disintegrating tablet 4 mg PO Q8H PRN PRN Nausea #10 tabs 10/17/21 [Rx Last Taken Unknown] Allergy/AdvReac Type Severity Reaction Status Date / Time No Known Allergies Allergy Verified 10/17/21 07:18 Social History Smoking Status: Never smoker ROS ROS ED Constitutional Constitutional ED: Denies fever(s) Eyes Eyes: Denies change in vision ENT ENT ED: Denies rhinorrhea or sore throat Cardiovascular Cardiovascular: Denies chest pain or palpitations Respiratory/Chest Respiratory/Chest: Denies cough or dyspnea Gastrointestinal Gastrointestinal: Reports abdominal pain, constipation, nausea and vomiting; Denies diarrhea or melena Genitourinary Genitourinary ED: Denies dysuria Musculoskeletal Musculoskeletal: Denies myalgias Integumentary Denies rash Neurologic Neurologic: Denies headache(s) Psychiatric Psychiatric: Denies suicidal thoughts EXAM Physical Exam Const Vital Signs: 10/17/21 07:16 Temperature 98 F Temperature Source Temporal Pulse Rate 112 H Respiratory Rate 16 Blood Pressure 137/85 H Blood Pressure Mean 102 Pulse Ox 98 Oxygen Delivery Method Room Air Positive well nourished and well developed General Appearance ED: well developed HEENT Reports normocephalic and head/scalp atraumatic Eyes PERRL and EOMs intact bilaterally Neck supple General: Negative for tenderness Chest Wall inspection of chest normal Resp normal respiratory effort and clear to auscultation bilaterally Cardio regular rate and regular rhythm GI non-distended GI Narrative: Mild diffuse tenderness with no guarding or rebound. Rectal exam normal, no stool impaction Palpation: soft; Negative for guarding or rebound tenderness present no CVA tenderness Extremity normal to inspection Neuro oriented x3 Sensorium / Orientation: alert Psych mental status grossly normal Skin no rashes or lesions noted MDM MDM MDM Narrative Medical decision making narrative: Patient was given IV fluids, Zofran. CBC, chemistries are unremarkable. negative. CT abdomen pelvis shows large amount of fecal material in the colon. Rectal exam shows minimal stool, no impaction. She will be given mag citrate for home. She was given prescription for Zofran. Advised to follow-up with primary care physician. Advised return to ED for worsening complaints. Lab Data Attestation: I reviewed the patient's lab results. Labs: Laboratory Results - last 24 hr 10/17/21 10/17/21 10/17/21 07:35 07:35 07:35 WBC 6.9 RBC 4.51 Hgb 12.9 Hct 36.4 L MCV 80.7 L MCH 28.6 MCHC 35.4 RDW Std Deviation 36.8 RDW Coeff of Susie 12.7 Plt Count 281 MPV 10.0 Immature Gran % (Auto) 0.100 Neut % (Auto) 64.6 Lymph % (Auto) 26.8 [place] % (Auto) 6.6 Eos % (Auto) 1.6 Baso % (Auto) 0.3 Absolute Neuts (auto) 4.4 Absolute Lymphs (auto) 1.84 Nucleated RBC % 0 Sodium 137 Potassium 3.4 L Chloride 107 Carbon Dioxide 24.0 Anion Gap 6 BUN 11 Creatinine 0.60 Estim Creat Clear Calc 138.85 Est GFR (MDRD) Af Amer 160 Est GFR (MDRD) Non-Af 133 BUN/Creatinine Ratio 18.3 Glucose 97 Calcium 8.7 Total Bilirubin 0.60 AST 17 ALT 14 Alkaline Phosphatase 48 Total Protein 7.6 Albumin 3.7 Globulin 3.9 Albumin/Globulin Ratio 0.9 Serum , Qual NEGATIVE Urine Color Urine Clarity Urine pH Ur Specific [place] Urine Protein Urine Glucose (UA) Urine Ketones Urine Occult Blood Urine Nitrite Urine Bilirubin Urine Urobilinogen Ur Leukocyte Esterase Urine RBC Urine WBC Ur Squamous Epith Cells Urine Bacteria Urine Mucus 10/17/21 09:15 WBC RBC Hgb Hct MCV MCH MCHC RDW Std Deviation RDW Coeff of Susie Plt Count MPV (more content not included)... Normal [facility] Hematocrit Auto (Bld) [Volum e fraction]on 10-17-2021 Hematocrit (Bld) [Volume fraction] 36.4 % 37-47 [facility] Work Phone: Ketones Test strip Ql (U)on 10-17-2021 Ketones Ql (U) 50 mg/dl Negative [facility] Work Phone: Laboratory - Chemistry and C hemistry - challengeon 10-17-2021 ALP [Catalytic activity/Vol] 48 U/L 45-117 [facility] Work Phone: Urea nitrogen/Creatinine [Mass ratio] 18.3 mg/mg 10-20 [facility] Work Phone: Laboratory - Hematology and Cell countson 10-17-2021 Erythrocyte distribution width (RBC) [Entitic vol] 36.8 fL 35.1-43.9 [facility] Work Phone: Erythrocyte distribution width (RBC) [Ratio] 12.7 % 11.6-14.6 [facility] Work Phone: Immature granulocytes/100 WBC (Bld) 0.100 % 0.0-0.9 [facility] Work Phone: Comment on above: IG% - Immature Granu locytes (promyelocytes, myelocytes and metamyelocytes) > 1% indicates that a LEFT SHIFT is Present. MCH (RBC) [Entitic mass] 28.6 pg 27.0-32.0 [facility] Work Phone: Nucleated RBC/100 WBC (Bld) [Ratio] 0 % 0-5 [facility] Work Phone: MCHC Auto (RBC) [Mass/Vol]on 10-17-2021 MCHC (RBC) [Mass/Vol] 35.4 g/dL 32-36 [facility] Work Phone: Mucus LM Ql (Urine sed)on Mucus Ql (Urine sed) 0 SEEN /hpf [facility] Work Phone: Nitrite Test strip Ql (U)on 10-17-2021 Nitrite Ql (U) Negative Negative [facility] Work Phone: No Panel Informationon 10-17 Estimated Creatinine Clearance Calc 138.85 ml/min [facility] Work Phone: Estimated GFR (MDRD) Amer 160 mL/min >60 [facility] Work Phone: Comment on above: GFR Calc Estimated GFR (MDRD) Non-Af Amer 133 mL/min >60 [facility] Work Phone: Comment on above: Non- GFR Calc Platelets bldon 10-17-2021 Platelets (Bld) [#/Vol] 281 10*3/uL 150-450 [facility] Work Phone: ,Serum,hCG Quali.on 10-17-2021 HCG, SERUM QUAL Negative Normal [facility] Comment on above: Performed By: #### L 700.6800 #### [facility] [address] [place], [place], [id number] Protein Test strip Ql (U)on 10-17-2021 Protein Ql (U) Negative Negative [facility] Work Phone: Serum or plasma albumin anushka urement (mass/volume)on 10-17-2021 Albumin [Mass/Vol] 3.7 g/dL Normal 3.2-5.0 [facility] Work Phone: Comment on above: Performed By: #### L 100.0100, L500.4050 #### [facility] [address] [place], [place], [phone] Serum or plasma albumin/glob ulin mass ratioon 10-17-2021 Albumin/Globulin [Mass ratio] 0.9 {ratio} Normal 0.9-2.4 [facility] Work Phone: Comment on above: Performed By: #### L 100.0100, L500.4050 #### [facility] [address] [place], [place], [phone] Serum or plasma calcium anushka urement (mass/volume)on 10-17-2021 Calcium [Mass/Vol] 8.7 mg/dL 8.5-10.1 [facility] Work Phone: Serum or plasma creatinine m easurement (mass/volume)on 10-17-2021 Creatinine [Mass/Vol] 0.60 mg/dL Normal 0.55-1.02 [facility] Work Phone: Comment on above: The validity of the calculated GFR & GFRAA in patients over 70 years has not been determined. Clinical correlation is essential. Result Comment: The validity of the calculated GFR GFRAA in patients over 70 years has not been determined. Clinical correlation is essential. Performed By: #### L 100.0100, L500.4050 #### [facility] [address] [place], [address] Serum or plasma urea nitroge n measurement (mass/volume)on 10-17-2021 Urea nitrogen [Mass/Vol] 11 mg/dL Normal -18 [facility] Work Phone: Comment on above: Performed By: #### L 100.0100, [id number] #### [facility] [address] [place], [address] Squamous epithelial cells de tection in urine sediment by light microscopyon 10-17-2021 Epithelial cells.squamous LM Ql (Urine sed) 5-10 SEEN /hpf 5- [facility] Work Phone: Thin prep Papanicolaou smear with manual screeningon 10-17-2021 Thin prep Papanicolaou smear with manual screening 17 U/L 15-37 [facility] Work Phone: Thin prep Papanicolaou smear with manual screening 6 5-15 [facility] Work Phone: Urinalysis, Completeon 10-17 EPI,SQUAMOUS 5-10 SEEN Normal - [facility] Comment on above: Order Comment: CLEAN CATCH Performed By: #### L 400.0001 #### [facility] [address] [place], [address] BACTERIA 0 SEEN Normal None Seen [facility] Comment on above: Order Comment: CLEAN CATCH Performed By: #### L 400.0001 #### [facility] [address] [place], [address] Mucus Ql (Urine sed) 0 SEEN Normal [facility] Comment on above: Order Comment: CLEAN CATCH Performed By: #### L 400.0001 #### [facility] [address] [place], [address] RBC 0 SEEN Normal 0-5 [facility] Comment on above: Order Comment: CLEAN CATCH Performed By: #### L 400.0001 #### [facility] [address] [place], [address] WBC 0 SEEN Normal 0-5 [facility] Comment on above: Order Comment: CLEAN CATCH Performed By: #### L 400.0001 #### [facility] [address] [place], [address] Urine blood detectionon 09-30 RBC Ql (U) Negative Negative [facility] Work Phone: RBC Ql (U) 0 SEEN /hpf 0-5 [facility] Work Phone: Urine clarityon 10-17-2021 Clarity (U) Sl. Cloudy Clear [facility] Work Phone: Urine color determinationon 10-17-2021 Color (U) Yellow Yellow [facility] Work Phone: Urine glucose detectionon Glucose Ql (U) Normal mg/dl Normal [facility] Work Phone: Urine leukocyte esterase det ection by dipstickon 10-17-2021 Leukocyte esterase Test strip Ql (U) Negative Negative [facility] Work Phone: Urine pHon 10-17-2021 pH (U) 6.0 [pH] 5.0 - 8.0 [facility] Work Phone: Urine sediment bacteria coun t by microscopy (number/high power field)on 10-17-2021 Bacteria LM.HPF (Urine sed) [#/Area] 0 /[HPF] None Seen [facility] Work Phone: Urine specific gravity measu rementon 10-17-2021 Specific gravity (U) [Rel density] 1.015 1.002-1.030 [facility] Work Phone: Urobilinogen Auto test strip Ql (U)on 10-17-2021 Urobilinogen Ql (U) Normal mg/dl Normal [facility] Work Phone: Vital Signs Date Time Vital Sign Value Performing Clinician Heenai lity 11-22-2023 19:05-0400 Body temperature 100 [degF] Paradise Carmencita 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 SHEET CLEANER.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 MOLDING MACHINE OPERATOR Work Phone: [facility] 11-22-2023 19:05-0400 Body weight 76 kg Paradise Carmencita MOLD SHEET CLEANER.SOLE MOLDING MACHINE OPERATOR Work Phone: [facility] 11-22-2023 19:05-0400 Diastolic blood pressure 78 mm[Hg] Paradise Carmencita MOLD SHEET CLEANER.SOLE MOLDING MACHINE OPERATOR Work Phone: [facility] 11-22-2023 19:05-0400 Heart rate 86 /min Paradise Carmencita MOLD SHEET CLEANER.SOLE MOLDING MACHINE OPERATOR Work Phone: [facility] 11-22-2023 19:05-0400 Respiratory rate 18 /min Paradise Carmencita MOLD SHEET CLEANER.SOLE MOLDING MACHINE OPERATOR Work Phone: [facility] 11-22-2023 19:05-0400 SaO2% (BldA) [Mass fraction] 100 % Paradise Carmencita MOLD SHEET CLEANER.SOLE MOLDING MACHINE OPERATOR Work Phone: [facility] 11-22-2023 19:05-0400 Systolic blood pressure 124 mm[Hg] Paradise Carmencita MOLD SHEET CLEANER.SOLE MOLDING MACHINE OPERATOR Work Phone: [facility] 10-17-2021 07:16-0400 Body height 167.64 cm [facility] Work Phone: 10-17-2021 07:16-0400 Body mass index (BMI) [Ratio] 23.8 kg/m2 [facility] Work Phone: 10-17-2021 07:16-0400 Body temperature 98 [degF] [facility] Work Phone: 10-17-2021 07:16-0400 Body weight 67.13 kg [facility] Work Phone: 10-17-2021 07:16-0400 Diastolic blood pressure 85 mm[Hg] [facility] Work Phone: 10-17-2021 07:16-0400 Heart rate 112 /min [facility] Work Phone: 10-17-2021 07:16-0400 Respiratory rate 16 /min [facility] Work Phone: 10-17-2021 07:16-0400 SaO2% (BldA) [Mass fraction] 98 % [facility] Work Phone: 10-17-2021 07:16-0400 Systolic blood pressure 137 mm[Hg] [facility] Work Phone: Encounters Encounter Date Encounter Type Care Provider Facility Start: 11-22-2023 End: 11-22-2023 ambulatory Facility:[facility] Start: 11-22-2023 End: 11-22-2023 Patient encounter procedure Paradise Carmencita [facility] Work [facility]: [facility] Comment on above: Nasal congestion (Pr imary Dx); Watery eyes; Low grade fever Start: 10-17-2021 End: 10-17-2021 Emergency department patient visit [facility]-Emergency Department Procedures Date Procedure Procedure Detail Performing Clinician Start: 10-17-2021 CT of abdomen and pe lvis without contrast Plan of Treatment Date Care Activity Detail Author Start: 12-02-2023 Influenza vaccination Influenza Vaccine (#1) [facility] Start: 12-01-2022 Covid-19 Vaccine ( season) Covid-19 Vaccine ( season) [facility] Start: 11-15-2020 Screening for malignant neoplasm of cervix Cervical Cancer Screening [facility] Start: 11-15-2018 Hepatitis B Vaccine (1 of 3 - 19+ 3-dose series) Hepatitis B Vaccine (1 of 3 - 19+ 3-dose series) [facility] Start: 11-15-2018 Urine microalbumin profile DTaP,Tdap,Td Vaccine (1 - Tdap) [facility] Start: 11-15-2017 Anxiety Screening Anxiety Screening [facility] Start: 11-15-2017 Depression Screening Depression Screening [facility] Start: 11-15-2017 GC (Gonorrhea) Screening (18-24) GC (Gonorrhea) Screening (18-24) [facility] Start: 11-15-2017 Hepatitis C screening Hepatitis C Screening [facility] Start: 11-15-2017 HIV screening HIV Screening [facility] Start: 11-15-2017 Screening for Chlamydia trachomatis Chlamydia Screening (18) [facility] Start: 2015 Meningococcal B Vaccine: Consider Based On Risk (1 of 2 - Patient Seeks Protection) Meningococcal B Vaccine: Consider Based On Risk (1 of 2 - Patient Seeks Protection) [facility] Start: 11-15-2014 HPV Vaccine (1 - 3-dose series) HPV Vaccine (1 - 3-dose series) [facility] Start: 11-15-2013 Peds To Adult Transition Annual Assessment Peds To Adult Transition Annual Assessment [facility] Start: 2011 Peds To Adult Transition Initial Discussion Peds To Adult Transition Initial Discussion [facility] Patient Education ED Constipation (Adult) [facility] Work Phone: Patient referral [facility] Work Phone: Payers Date Payer Category Payer Policy ID Self-pay SELF PAY INSURANCE [id number] Unknown [employer]ANCE [id number] Social History Date Type Detail Facility [facility] Work Phone: Start: 10-17-2021 Tobacco smoking stat us NHIS Unknown if ever smoked [facility] Work Phone: Start: 10-13-2018 With Family Low [facility] Work Phone: Start: 2000 Sex Assigned At Female [facility] Work Phone: Start: 11-22-2023 [facility] Start: 11-22-2023 Tobacco use and exposure Smokeless tobacco non-user [facility] Start: 04-12-2023 End: 11-22-2023 History of Social function [facility] Start: 04-12-2023 End: 11-22-2023 Tobacco use panel [facility] National Score (1-100), lower number is lower risk 90 [facility] Start: 1999 Sex assigned at Not on file C [facility] Instructions 11-22-2023 Patient Instructions Note Date & Type Note Facility 11-22-2023 Instructions Paradise Tse APRN.CNP - 11/22/2023 7:34 PM EDT Rest, increase water intake Motrin or Tylenol as needed for fever or pain. Salt water gargles, chloraseptic spray or lozenges as needed for sore throat. Warm beverages, honey. Nasal saline spray as needed Cool mist humidifier at night A cold normally lasts 7-10 days. If your symptoms are lasting longer, develop fever, or worsening by that time instead of improving then return to clinic or follow up with PCP for re-evaluation. For allergies Flonase or Nasonex 2 sprays in each nostril once a day Zyrtec 10 mg By mouth daily at bedtime Pataday or Zaditor as needed for eye itching * Seek medical care immediately, call 911, go to ER if you have chest pain, difficulty breathing, shortness of breath, inability to swallow. documented in this encounter [facility] Progress note 11-22-2023 Note Date & Type Note Facility 11-22-2023 Note HNO ID: [id number] Author: PARADISE TSE APRN.CNP Service: ? Author Type: Nurse Practitioner Type: Progress Notes Filed: 11/22/2023 19:35 Note Text: Subjective The history is provided by the patient. No official court interpreter was used. HPI Nayana Mora is a 23 year old female who presents today for CC of nasal congestion, itchy watery eyes and post nasal drainage for 3 days. She also has a low grade temperature. 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 She denies any cough nausea, vomiting or diarrhea. She did not test for covid no known exposure. BP 124/78 Pulse 86 Temp 37.8 ?C (100 ?F) Resp 18 Wt 76 kg (167 lb 8.8 oz) LMP 11/22/2023 (Exact Date) SpO2 100% Social History Tobacco Use Smoking status: Never Smokeless tobacco: Never No past medical history on file. I have confirmed and edited as necessary, the [facility] Review of Systems Constitutional: Negative for chills and fever. HENT: Positive for congestion and sinus pain. Negative for ear pain and sore throat. Eyes: Itchy eyes Respiratory: Negative for cough, sputum production, shortness of breath and wheezing. Cardiovascular: Negative for chest pain. Musculoskeletal: Negative for myalgias. Neurological: Negative for headaches. Objective Physical Exam Vitals and nursing note reviewed. HENT: Head: Normocephalic and atraumatic. Right Ear: Tympanic membrane, ear canal and external ear normal. Left Ear: Tympanic membrane, ear canal and external ear normal. Nose: Mucosal edema, congestion and rhinorrhea (clear) present. Right Sinus: No maxillary sinus tenderness or frontal sinus tenderness. Left Sinus: No maxillary sinus tenderness or frontal sinus tenderness. Mouth/Throat: Pharynx: Uvula midline. No oropharyngeal exudate or posterior oropharyngeal erythema. Cardiovascular: Rate and Rhythm: Normal rate and regular rhythm. Heart sounds: Normal heart sounds. Pulmonary: Effort: Pulmonary effort is normal. Breath sounds: Normal breath sounds. Lymphadenopathy: Head: Right side of head: No submental, submandibular or tonsillar adenopathy. Left side of head: No submental, submandibular or tonsillar adenopathy. Cervical: No cervical adenopathy. Skin: General: Skin is warm and dry. Neurological: Mental Status: She is alert. Psychiatric: Mood and Affect: Affect normal. ASSESSMENT/PLAN: 1. Nasal congestion - ICD9: 478.19, ICD10: R09.81 (primary diagnosis) Possible allergies uri Zyrtec, flonase 2. Watery eyes - ICD9: 375.20, ICD10: H04.203 Possible viral, cold, allergies Zaditor, pataday 3. Low grade fever - ICD9: 780.60, ICD10: R50.9 Tylenol/ibuprofen Possible viral illness Will test for covid at home, declined testing here Symptomatic treatment Diagnosis and treatment plan were discussed and questions were answered to the patient's satisfaction. Pt acknowledged understanding of concepts and follow up plan. Specific signs and symptoms that would indicate the need for higher level of care were discussed in detail warranting prompt ER evaluation. Paradise Tse APRN.VLADISLAV [facility] History of Present illness Narrative 11-22-2023 Paradise Tse APRN.VLADISLAV - 11/22/2023 7:27 PM EDT Note Date & Type Note Facility 11-22-2023 History of Presen t illness Narrative Subjective The history is provided by the patient. No official court interpreter was used. HPI Nayana Mora is a 23 year old female who presents today for CC of nasal congestion, itchy watery eyes and post nasal drainage for 3 days. She also has a low grade temperature. 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 She denies any cough nausea, vomiting or diarrhea. She did not test for covid no known exposure. BP 124/78 Pulse 86 Temp 37.8 C (100 F) Resp 18 Wt 76 kg (167 lb 8.8 oz) LMP 11/22/2023 (Exact Date) SpO2 100% Social History Tobacco Use Smoking status: Never Smokeless tobacco: Never No past medical history on file. I have confirmed and edited as necessary, the [facility] Review of Systems Constitutional: Negative for chills and fever. HENT: Positive for congestion and sinus pain. Negative for ear pain and sore throat. Eyes: Itchy eyes Respiratory: Negative for cough, sputum production, shortness of breath and wheezing. Cardiovascular: Negative for chest pain. Musculoskeletal: Negative for myalgias. Neurological: Negative for headaches. Objective Physical Exam Vitals and nursing note reviewed. HENT: Head: Normocephalic and atraumatic. Right Ear: Tympanic membrane, ear canal and external ear normal. Left Ear: Tympanic membrane, ear canal and external ear normal. Nose: Mucosal edema, congestion and rhinorrhea (clear) present. Right Sinus: No maxillary sinus tenderness or frontal sinus tenderness. Left Sinus: No maxillary sinus tenderness or frontal sinus tenderness. Mouth/Throat: Pharynx: Uvula midline. No oropharyngeal exudate or posterior oropharyngeal erythema. Cardiovascular: Rate and Rhythm: Normal rate and regular rhythm. Heart sounds: Normal heart sounds. Pulmonary: Effort: Pulmonary effort is normal. Breath sounds: Normal breath sounds. Lymphadenopathy: Head: Right side of head: No submental, submandibular or tonsillar adenopathy. Left side of head: No submental, submandibular or tonsillar adenopathy. Cervical: No cervical adenopathy. Skin: General: Skin is warm and dry. Neurological: Mental Status: She is alert. Psychiatric: Mood and Affect: Affect normal. ASSESSMENT/PLAN: 1. Nasal congestion - ICD9: 478.19, ICD10: R09.81 (primary diagnosis) Possible allergies uri Zyrtec, flonase 2. Watery eyes - ICD9: 375.20, ICD10: H04.203 Possible viral, cold, allergies Zaditor, pataday 3. Low grade fever - ICD9: 780.60, ICD10: R50.9 Tylenol/ibuprofen Possible viral illness Will test for covid at home, declined testing here Symptomatic treatment Diagnosis and treatment plan were discussed and questions were answered to the patient's satisfaction. Pt acknowledged understanding of concepts and follow up plan. Specific signs and symptoms that would indicate the need for higher level of care were discussed in detail warranting prompt ER evaluation. Paradise Tse APRN.SOLE MOLDING MACHINE OPERATOR documented in this encounter [facility] Evaluation note Note Date & Type Note Facility Evaluation note No assessment information [facility] Work Phone: Evaluation note Note Date & Type Note Facility Evaluation note Diagnosis Nasal congestion- Primary Other diseases of nasal cavity and sinuses Watery eyes Epiphora, unspecified as to cause Low grade fever Fever, unspecified documented in this encounter [facility] Chief Complaint and Reason for Visit Chief Complaint constipation Advance Directives No Advanced Directives Records Found Advance Directive Response Recorded Date/ Time Living Will No October 17, 2021 7:29am Power of Communications Writer No October 17 7:29am Summary Purpose Family History No Family History Records FoundNo Family History Records Found Additional Source Comments Goals (unrecognized section and content) Goals may be documented in a n alternate section INFORMATION SOURCE (unrecogn ized section and content) DATE CREATED AUTHOR 10/23/2021 [facility] DATE CREATED AUTHOR AUTHOR'S LOVE HAND 11/25/[address] [facility] Source Comments (unrecognize d section and content) In the event this informatio n is protected by the Federal Confidentiality of Alcohol and Drug Abuse Patient Records regulations: The Federal rules restrict any use of the information to criminally investigate or prosecute any alcohol or drug abuse patient.[facility] Reason for Visit (unrecogniz ed section and content) Reason Comments Sinus Problem Pressure and pain in face, headache, itchy watery eyes, scratchy throat, low grade fever x 2 days FOR RECORDS PERTAINING TO PATIENTS WHO ARE OR HAVE BEEN ENROLLED IN A CHEMICAL DEPENDENCY/SUBSTANCEABUSE PROGRAM, SOME INFORMATION MAY BE OMITTED. This clinical summary was aggregated from multiple sources. Caution should be exercised in using it in the provision of clinical care. This summary normalizes information from multiple sources, and as a consequence, information in this document may materially change the coding, format and clinical context of patient data. In addition, data may be omitted in some cases. CLINICAL DECISIONS SHOULD BE BASED ON THE PRIMARY CLINICAL RECORDS. [facility]. provides no warranty or guarantee of the accuracy or completeness of information in this document.
[2025-02-16 04:25] VITALS: BP 108/72; PULSE 74; RESP 18; TEMP 36.7; O2SAT 97
== END 2025-02-16 04:26 | disposition home or self-care (01) ==
PROVIDERS: Emergency Provider Emergency Medicine; Visit Provider Emergency Medicine
DX: K11.8 Other diseases of salivary glands (principal); R59.0 Localized enlarged lymph nodes; M54.2 Cervicalgia
CPT/HCPCS: 70480; 70491; 80048; 85025; 96374; 96375; 99282; Q9967; A4216